=== PATIENT | male | born 1935 | race Caucasian/White ===

== ENCOUNTER 2020-02-29 11:46 | Day surgery (SDC) | payer MEDICARE, OTHER ==
[~2020-02-29] VITALS: Ht 175.3 cm; Wt 83.5 kg
[~2020-02-29 11:46] MED LIST: ASPI325; B-121000 MC2 PO; CLOB.05TC TOP; Cialis20 MG PO; EUTHYROX175 MCG PO; LEVSOD100; LEVSOD150 PO; LISI5 PO; MULVITA; OMEP20ER PO; Omeprazole20 M1; PROP120ER; PROPRANOLOL HC120 MG PO; SYNTHROID; VITAMIN D31000 UNIT PO; XYZAL5 MG PO; [UNRECOGNIZED DRUG - OTHER]
== END 2020-02-29 13:55 | disposition home or self-care (01) ==
LOC: ORSCSDS 11:46
PROVIDERS: Surgery
PROC: 0DJD8ZZ Inspection of Lower Intestinal Tract, Via Natural or Artificial Opening Endoscopic (ICD-10-PCS; principal; 2020-02-29 13:00)
DX: Z12.11 Encounter for screening for malignant neoplasm of colon (principal); Z86.010 Personal history of colon polyps; K57.30 Diverticulosis of large intestine without perforation or abscess without bleeding; G47.33 Obstructive sleep apnea (adult) (pediatric); E03.9 Hypothyroidism, unspecified; N18.9 Chronic kidney disease, unspecified; Z79.899 Other long term (current) drug therapy
CPT/HCPCS: J2704; J7120

== ENCOUNTER 2020-05-05 20:13 | Inpatient (IN) | payer OTHER, MEDICARE ==
[~2020-05-05] VITALS: Ht 175.3 cm; Wt 79.8 kg
[2020-05-05 20:57] LABS: BASOPHILS ABSOLUTE AUTO 0.03 K/mm3 (0.00-0.23); BASOPHILS PERCENT AUTO 0 % (0-2); EOSINOPHILS PERCENT AUTO 0 % (0-6); Hematocrit 54.2 % (37.0-53.0); Hemoglobin 17.8 g/dL (13.5-17.5); IMMATURE GRAN ABSOLUTE AUTO 0.02 K/mm3 (0.00-0.10); IMMATURE GRAN PERCENT AUTO 0 % (0-1); LYMPHOCYTES ABSOLUTE AUTO 1.43 K/mm3 (0.84-5.20); LYMPHOCYTES PERCENT AUTO 21 % (21-46); MONOCYTES PERCENT AUTO 13 % (4-13); Mean Corpuscular HGB Conc 32.8 g/dL (31.5-36.5); Mean Corpuscular Volume 94 fL (80-100); Mean Platelet Volume 11.3 fL (9.1-12.4); NEUTROPHILS ABSOLUTE AUTO 4.41 K/mm3 (1.96-9.15); NEUTROPHILS PERCENT AUTO 65 % (41-73); Platelet Count 111 K/mm3 (150-400); RDW Standard Deviation 45.5 fL (35.1-46.3); Red Blood Cell Count 5.75 M/mm3 (4.30-5.90); White Blood Cell Count 6.79 K/mm3 (4.00-11.30)
[2020-05-05 21:17] LABS: Albumin, Blood 3.9 g/dL (3.4-5.0); Albumin/Globulin Ratio 0.9 (0.8-1.8); Bun/Creatinine Ratio 22.5 (12.0-20.0); Calcium, Blood 8.8 mg/dL (8.5-10.1); Creatinine, Blood 1.42 mg/dL (0.60-1.20); Globulin, Blood 4.3 g/dL (2.2-4.0); Magnesium, Blood 2.1 mg/dL (1.6-2.4); Potassium, Blood 4.4 mmol/L (3.5-5.5); Total Protein, Blood 8.2 g/dL (6.4-8.2); Troponin I 0.07 ng/mL (0.000-0.040)
[2020-05-06 01:09] LABS: Adenovirus Not Detected (NOT DETECT); Coronavirus 229E Not Detected (NOT DETECT); Coronavirus HKU1 Not Detected (NOT DETECT); Coronavirus NL63 Not Detected (NOT DETECT); Coronavirus OC43 Not Detected (NOT DETECT)
[2020-05-06 01:14] LABS: Bordetella pertussis Not Detected (NOT DETECT); Chlamydophila pneumoniae Not Detected (NOT DETECT); Human Metapneumovirus Not Detected (NOT DETECT); Human Rhinovirus/Enterovirus Not Detected (NOT DETECT); Influenza A/2009-H1 Not Detected (NOT DETECT); Influenza A/H1 Not Detected (NOT DETECT); Influenza A/H3 Not Detected (NOT DETECT); Influenza B Not Detected (NOT DETECT); Mycoplasma pneumoniae Not Detected (NOT DETECT); Parainfluenza Virus 1 Not Detected (NOT DETECT); Parainfluenza Virus 2 Not Detected (NOT DETECT); Parainfluenza Virus 3 Not Detected (NOT DETECT); Parainfluenza Virus 4 Not Detected (NOT DETECT); Respiratory Syncytial Virus Not Detected (NOT DETECT); SARS-Cov-2 (COVID-19), BioFire Detected (NOT DETECT)
[2020-05-06 05:48] LABS: BASOPHILS ABSOLUTE AUTO 0.01 K/mm3 (0.00-0.23); BASOPHILS PERCENT AUTO 0 % (0-2); EOSINOPHILS ABSOLUTE AUTO 0.01 K/mm3 (0.00-0.68); EOSINOPHILS PERCENT AUTO 0 % (0-6); Hematocrit 48.5 % (37.0-53.0); Hemoglobin 15.9 g/dL (13.5-17.5); IMMATURE GRAN ABSOLUTE AUTO 0.02 K/mm3 (0.00-0.10); IMMATURE GRAN PERCENT AUTO 0 % (0-1); LYMPHOCYTES PERCENT AUTO 26 % (21-46); MONOCYTES ABSOLUTE AUTO 0.77 K/mm3 (0.16-1.47); MONOCYTES PERCENT AUTO 17 % (4-13); Mean Corpuscular HGB 30.9 pg (26.0-34.0); Mean Corpuscular HGB Conc 32.8 g/dL (31.5-36.5); Mean Corpuscular Volume 94 fL (80-100); NEUTROPHILS ABSOLUTE AUTO 2.53 K/mm3 (1.96-9.15); NEUTROPHILS PERCENT AUTO 56 % (41-73); Platelet Count 90 K/mm3 (150-400); RDW Coefficient Variation 13.1 % (11.7-14.2); RDW Standard Deviation 45.8 fL (35.1-46.3); Red Blood Cell Count 5.14 M/mm3 (4.30-5.90); White Blood Cell Count 4.54 K/mm3 (4.00-11.30)
--- NOTE | 2020-05-06 05:52 | NUR ---
CORRECTIONS CORPORAL SUMMARY Patient arrived from ER around 2400. Alert and oriented X4, Chilled, but without fever, VSS. No complaints of pain. More concerned about his Mary Kate who was later assigned room across aguilar from him. 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 . Patient is a good historian. Lung sounds are coarse in upper airways and clear with strong cough. Explained need for sputum sample. 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 CIWA score 0 at this time.
[2020-05-06 06:20] LABS: Alanine Aminotransfer (ALT/SGP 42 U/L (12-78); Albumin, Blood 3.1 g/dL (3.4-5.0); Albumin/Globulin Ratio 0.8 (0.8-1.8); Alk Phos 61 U/L (50-136); Anion Gap 9 mmol/L (6-16); Aspartate Aminotrans (AST/SGOT 62 U/L (12-37); Bilirubin, Total 0.8 mg/dL (0.1-1.0); Blood Urea Nitrogen 32 mg/dL (8-24); Bun/Creatinine Ratio 27.6 (12.0-20.0); CO2, Blood 24 mmol/L (21-32); CPK Creatine Kinase 153 U/L (39-308); Calcium, Blood 8.4 mg/dL (8.5-10.1); Chloride, Blood 103 mmol/L (98-108); Creatinine, Blood 1.16 mg/dL (0.60-1.20); Globulin, Blood 3.8 g/dL (2.2-4.0); Glomerular Filtration Rate >60 (60-); Glucose, Blood 92 mg/dL (70-99); Potassium, Blood 4.3 mmol/L (3.5-5.5); Sodium, Blood 136 mmol/L (136-145); Total Protein, Blood 6.9 g/dL (6.4-8.2); Troponin I 0.109 ng/mL (0.000-0.040)
--- NOTE | 2020-05-06 09:11 | NUR ---
Echocardiogram using 0.50ml of Definity contrast performed.
[2020-05-06 14:05] LABS: Troponin I 0.068 ng/mL (0.000-0.040)
--- NOTE | 2020-05-06 18:27 | NUR ---
very nice a+o, cooprative with care, medicated as prescribed, rm air after being titrated off of o2 and staying above 90, walking self to bathroom, calllight in reach, saline locked, standing next to bed talking to daughter, will continue to monitor and treat until share bsr with staff and pt
--- NOTE | 2020-05-07 03:39 | NUR ---
84 year old MAle with covid 19 positive status continues in special resp droplet isolation. Alert & acitve PT 95% sat on 2 .5 l oxygen. He CO SOB early in shift with activity but sat was 100% at that time. He says he has had some memory loss with covid infection, support offered. 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 He is active in room & tolerating diet. Planning for DC home when ready. On tele monitor NSR rate in 60s. PT is a [place]. Has supportive Family DTR wants involved in discharge plan.
[2020-05-07 06:36] LABS: BASOPHILS PERCENT AUTO 0 % (0-2); EOSINOPHILS PERCENT AUTO 0 % (0-6); Hemoglobin 15.6 g/dL (13.5-17.5); IMMATURE GRAN ABSOLUTE AUTO 0.03 K/mm3 (0.00-0.10); IMMATURE GRAN PERCENT AUTO 1 % (0-1); LYMPHOCYTES ABSOLUTE AUTO 0.92 K/mm3 (0.84-5.20); LYMPHOCYTES PERCENT AUTO 19 % (21-46); MONOCYTES ABSOLUTE AUTO 0.96 K/mm3 (0.16-1.47); MONOCYTES PERCENT AUTO 20 % (4-13); Mean Corpuscular HGB 31.1 pg (26.0-34.0); Mean Corpuscular HGB Conc 33.2 g/dL (31.5-36.5); Mean Corpuscular Volume 94 fL (80-100); Mean Platelet Volume 11.1 fL (9.1-12.4); NEUTROPHILS ABSOLUTE AUTO 2.95 K/mm3 (1.96-9.15); NEUTROPHILS PERCENT AUTO 61 % (41-73); Platelet Count 116 K/mm3 (150-400); RDW Standard Deviation 44.8 fL (35.1-46.3); Red Blood Cell Count 5.02 M/mm3 (4.30-5.90); White Blood Cell Count 4.86 K/mm3 (4.00-11.30)
[2020-05-07 06:58] LABS: Anion Gap 7 mmol/L (6-16); Blood Urea Nitrogen 44 mg/dL (8-24); Bun/Creatinine Ratio 37.6 (12.0-20.0); CO2, Blood 25 mmol/L (21-32); Calcium, Blood 8.9 mg/dL (8.5-10.1); Chloride, Blood 104 mmol/L (98-108); Creatinine, Blood 1.17 mg/dL (0.60-1.20); Glomerular Filtration Rate >60 (60-); Glucose, Blood 122 mg/dL (70-99); Potassium, Blood 4.8 mmol/L (3.5-5.5); Sodium, Blood 136 mmol/L (136-145)
--- NOTE | 2020-05-07 16:17 | NUR ---
PATIENT HAS BEEN PLEASANT AND COOPERATIVE; FUN SENSE OF HUMOR. VITALS HAVE BEEN STABLE, WITH THE EXCEPTION OF A RR OF 24 THIS MORNING; THAT HAS SINCE COME DOWN TO WNL. PATIENT CONTINUES ON IV ANTIFUNGALS FOR THE COVID VIRUS WITHOUT S/SX OF ADVERSE REACTIONS NOTED OR REPORTED. PATIENT HAS BEEN UP INDEPENDENTLY IN HIS ROOM AND EVEN UP VISITING ACROSS THE LANDERS IN HER ROOM. PATIENT IS CURRENTLY AT BEDSIDE OF . WILL CONTINUE TO MONITOR AND PROVIDE CARE NEEDED.
--- NOTE | 2020-05-08 06:41 | NUR ---
PT was weaned to room air & tolerated well. VSS denies acute distress, CIWA neg & PT denies need for intervention. Continues on inhanced isolation for covid 19 status.
--- NOTE | 2020-05-08 16:02 | NUR ---
PATIENT HAS BEEN PLEASANT AND COOPERATIVE WITH STAFF AND PROVIDED CARE. VITALS HAVE BEEN STABLE, HOWEVER A BIT BRADYCARDIC AT TIMES. INDEPENDENT IN ROOM. CONTINUES ON A DAILY IV ANTI-VIRAL FOR COVID. CALLS STAFF APPROPRIATELY FOR ASSIST NEEDED. PATIENT IN ROOM AT THIS TIME RELAXING. WILL CONTINUE TO MONITOR AND PROVIDE CARE NEEDED. PATIENT HAS DENIES HAVING AND ETOH WITHDRAWL SYMPTOMS.
--- NOTE | 2020-05-09 03:45 | NUR ---
84 year old PT continues in special resp isolation for positive covid 19 status. Alert & active up in room VSS except oxygen sat drops to 84 with activity on room air he returns quickly to 93% on room air. [place], PT continues on daily IV tx for covid 19 viral infection. Pleasant & tolerating diet & activity. Had been constipated but now bowels moving appetite improving.
--- NOTE | 2020-05-09 18:07 | NUR ---
Asited pt's dtr in completion of new Polst for pt. Pt would like DNR, limited interventions. Physician signed and several copies made for family. 2 copies placed in chart. Dtr took original.
--- NOTE | 2020-05-09 18:12 | NUR ---
SHIFT SUMMARY PT IS AOX4. PT IS COOPERATIVE WITH CARE. NEW ORDER FOR FLUTTER VALVE TREATMENT PER PT REQUEST. PT HAD LONG DISCUSSION WITH DAUGHTER ABOUT POLST ORDER AND PT IS NOW A DNR WITH LIMITED CODE. PT DENIES PAIN, N/V, SOB. PT HAS OCCASIONAL NONPRODUCTIVE COUGH. PT IS INDEPENDEND IN ROOM AND TOOK A SHOWER TODAY AND HAD LINENS CHANGED. PLAN IS FOR PT TO STAY OVER THE WEEKEND AND POTENTIALLY DC NEXT WEEK. IV IS SALINE LOCKED. PT IS IN BED, CALL LIGHT IN REACH, BED IN LOW POSITION.
--- NOTE | 2020-05-10 06:22 | NUR ---
SHIFT SUMMARY PT IS AN 84 Y/O MALE, ADMITTED FOR ACUTE RESPIRATORY FAILURE AND COVID19 POSITIVE. HE IS A&O X 4, INDEPENDENT IN THE ROOM. NO COMPLAINTS OF PAIN, NAUSEA OR SOB DURING THE NIGHT. VITAL SIGNS STABLE. PT SLEPT WELL THROUGH THE NIGHT. NO ACUTE CHANGES IN PT CONDITION NOTED. WILL CONTINUE TO MONITOR AND TREAT PER EMAR UNTIL HAND OFF TO DAY SHIFT RN.
--- NOTE | 2020-05-10 19:20 | NUR ---
a+o, went to visit , asked for restless leg medication, but nothing seen yet from dr, will ask again, call light in reach, saline locked, independent in
[2020-05-11 05:28] LABS: Hematocrit 44.2 % (37.0-53.0); Hemoglobin 14.8 g/dL (13.5-17.5); Mean Corpuscular HGB 31.1 pg (26.0-34.0); Mean Corpuscular HGB Conc 33.5 g/dL (31.5-36.5); Mean Corpuscular Volume 93 fL (80-100); Mean Platelet Volume 11.4 fL (9.1-12.4); Platelet Count 178 K/mm3 (150-400); RDW Coefficient Variation 12.7 % (11.7-14.2); RDW Standard Deviation 43.7 fL (35.1-46.3); Red Blood Cell Count 4.76 M/mm3 (4.30-5.90); White Blood Cell Count 11.42 K/mm3 (4.00-11.30)
--- NOTE | 2020-05-11 05:58 | NUR ---
SHIFT SUMMARY PATIENT ALERT AND ORIENTED. PATIENT STATED THAT HE WAS UNABLE TO GET MUCH SLEEP DUE TO HIS RESTLESS LEGS AND IS REQUESTING TO HAVE MEDICATION ORDERED TO HELP WITH THAT TONIGHT. PATIENT WORE HOME CPAP OVERNIGHT. HAD MINIMAL NEEDS. IV PATENT AND FLUSHED. BED IN LOWEST POSITION WITH WHEELS LOCKED. CALL LIGHT WITHIN REACH. REPORT GIVEN TO ONCOMING RN.
[2020-05-11 06:15] LABS: Albumin, Blood 2.8 g/dL (3.4-5.0); Anion Gap 6 mmol/L (6-16); Blood Urea Nitrogen 33 mg/dL (8-24); Bun/Creatinine Ratio 31.7 (12.0-20.0); CO2, Blood 26 mmol/L (21-32); Calcium, Blood 8.7 mg/dL (8.5-10.1); Chloride, Blood 102 mmol/L (98-108); Creatinine, Blood 1.04 mg/dL (0.60-1.20); Glomerular Filtration Rate >60 (60-); Glucose, Blood 119 mg/dL (70-99); Phosphorus, Blood 3.1 mg/dL (2.5-4.9); Potassium, Blood 4.5 mmol/L (3.5-5.5); Sodium, Blood 134 mmol/L (136-145)
--- NOTE | 2020-05-11 10:23 | NUR ---
a+o, dealing with emeotions e/ illness, call light in reach, no bm today, denied urge to go but visited bathroom to please staff, down to visit covid + with family memeber, medicated as prescribed, will continue to monitor and treat
--- NOTE | 2020-05-11 18:13 | NUR ---
a+o, wanting to return to own home, up walking in rm, pt felt he did not require them, took medication as prescribed, saline locked, call light in reach, rm air, will continue to monitor and treat until share bsr with noc nurse and pt, remains very concerned r/
--- NOTE | 2020-05-12 06:38 | NUR ---
SHIFT SUMMARY PATIENT ALERT AND ORIENTED. REQUESTED THAT HE HAVE MEDICATION ORDERED FOR HIS RESTLESS LEG SYNDROME. THIS RN CALLED THE ASSISTANT TODDLER TEACHER PHYSICIAN, DR GLOVER, AND RECEIVED AN ORDER FOR 0.5 MG PO REQUIP AT HS PRN. PATIENT REPORTED THAT THE MEDICATION HELPED HIS LEGS FEEL BETTER. IV PATENT AND FLUSHED. BED IN LOWEST POSITION WITH WHEELS LOCKED. CALL LIGHT WITHIN REACH. REPORT GIVEN TO ONCOMING RN.
--- NOTE | 2020-05-12 11:48 | NUR ---
report received from [facility] nurse, a+o, just tired, family requested meds to help him rest, posted sign on door, o2 has been above 90 for shift, call light in reach, able to walk to bathroom, saline locked, bed in low position, rm air, will continue to monitor and treat
--- NOTE | 2020-05-12 16:02 | NUR ---
pt tripped on his way to the bathroom, dr, family and cn informed, pt back in bed with alarm on, will continue to monitor and treat
--- NOTE | 2020-05-12 18:37 | NUR ---
pt fell during shift, reported to dr, family and cn, family stated they thought he may have gotten a bruise on his abdmn but that had been there from blood thinner, already was black/blue not red fresh looking will continue to monitor and treat until share bsr with noc nurse, pt is resting, breathing easily, 02 > 90 when checked, saline locked, rm air, held vit c due to pt being so deeply asleep he might have been a choke issue/risk, pt responds but does not wake up to verbal stimuli, frequent neuro checks irritated pt but nothing was indicated
--- NOTE | 2020-05-13 03:19 | NUR ---
PHYSICIAN COMMUNICATION CONTACTED SUBSCRIPTION CREW LEADER PHYSICIAN, DR WOLF, TO NOTIFY HER THAT THE PATIENT FELL ON DAY SHIFT 05/12 AND SINCE HAS BEEN EXPERIENCING INCREASING PAIN IN HIS RIGHT LOWER RIB AREA AND IS CURRENTLY AT A 7/10 PAIN. STATED THAT HE DIDN'T HAVE ANY PAIN MEDICATION ORDERED CURRENTLY. DR WOLF SAID SHE WOULD ENTER AN ORDER OF TYLENOL TO BEGIN WITH.
--- NOTE | 2020-05-13 09:00 | NUR ---
pt pleasant a/o x3. talkative, is tearful when discussed , whom just passed lst markell. h/r reg, no murmer noted. no tele. lungs crackles rt mid and low left lower. on r/a at this time. does sleep with cpap. covid positive. resp easy, unlabored. states no distress at this time. bt x4 last bm 2 days per pt. voids q 2-3 hrs per pt. 1 sba to bathroom. bed in low position, call lite in reach, calls approp
--- NOTE | 2020-05-13 17:49 | NUR ---
pt pleasant today. daughter in to room. did express desire to not discuss him at this time. is tearful. no new concerns at this time. [facility], in room most of day. bed in low positioin, call lite in reach, calls approp
--- NOTE | 2020-05-13 18:11 | NUR ---
Initial spiritual care note: Mr. Seymour was clearly grieving the loss of his just yesterday. He was tearful and talkative. He allowed me to pray for him. Dtr present and appreciative of emotional support. Gentle memorial counselor provided to both. We had an easy rapport. He will benefit from continued emotional support. Encouraged self-care to dtr. Pt going home alone is a concern for family. I will remain available.
--- NOTE | 2020-05-14 05:08 | NUR ---
SHIFT SUMMARY: AFEB. 02 91-94% ON RA. CRACKLES AUSCULTATED IN BASES BILATERALLY AND R MID LOBE. OCC NON-PRODUCTIVE COUGH. PT REPORTS EXERTIONAL DYSPNEA IMPROVING- APPEARS MILDLY PRESENT WHEN AMBULATING TO AND FROM THE BATHROOM. CALLING APPROPRIATELY FOR ASSISTANCE TONIGHT. GAIT APPEARS STEADY. PT STATES HE FEELS HIS HEALTH IS IMPROVING. MED X 1 FOR RLS. NO ACUTE CONCERNS AT THIS TIME.
[2020-05-14] MEDS ORDERED: ACET325 PO (13:01)
[2020-05-14] MEDS ORDERED: ALBU90OI INH (13:03)
[2020-05-14] MEDS ORDERED: ASCO500 PO (13:04)
[2020-05-14] MEDS ORDERED: FOLI1 PO (13:05)
[2020-05-14] MEDS ORDERED: BENZ100A PO (13:05)
[2020-05-14] MEDS ORDERED: LIDOCAINE1 EAC1 TOP (13:06)
[2020-05-14] MEDS ORDERED: Ropinirole HCl0.5 MG PO (13:08)
[2020-05-14] MEDS ORDERED: B-1100 M1 PO (13:09)
--- NOTE | 2020-05-14 17:09 | NUR ---
PT WAS DISCHARGED @ APPROX 1700 BY WHEELCHAIR WITH [facility]SP[facility]. VERONICA CAME AND PROVIDED PT WITH PORTABLE O2 TANK TO GET PT HOME, NC WAS PLACED ON PT WITH 1 L/MIN O2 GOING. VERONICA ALSO MEETING PT AT HOME TONIGHT WITH EXTRA TANKS. PT WAS INFORMED ABOUT DISCHARGE EDUCATION AND PROVIDED HANDOUTS. HE WAS ALSO INFORMED REGARDING FOLLOW UP APPOINTMENT WITH PCP. DAUGHTER WAS ALSO CALLED AND INFORMED. PRESCIPTIONS WILL BE DELIVERED TO PT JENNIFER TOMORROW BY PHARMACY. PT IS TO CONTACT [facility] TO HAVE THEM CONTACT [employer] REGARDING SHIPPING OF FUTURE MEDICATIONS. HOME HEALTH IS TO CONTACT PT. CPAP AND INCENTIVE SPIROMETER WAS SENT HOME WITH PT. IV REMOVED AND SITE LOOKED WITHIN NORMAL LIMITS.
--- NOTE | 2020-05-14 17:15 | NUR ---
Supportive visit and prayer provided to Lev and his dtr, Veronica. Lev was appreciaitve and open to gentle bereavment career and guidance counselor. Family was tearful but appropriate. He is being d/c this afternoon.
== END 2020-05-14 17:01 | disposition home health service (06) | DRG 871 ==
LOC: ER 20:13 → MEDS 22:05
PROVIDERS: Emergency Medicine; Internal Medicine; ADMIT Internal Medicine
PROC: XW033E5 Introduction of Remdesivir Anti-infective into Peripheral Vein, Percutaneous Approach, New Technology Group 5 (ICD-10-PCS; principal; 2020-05-05)
PROC: 3E0333Z Introduction of Anti-inflammatory into Peripheral Vein, Percutaneous Approach (ICD-10-PCS; 2020-05-05)
PROC: 5A09457 Assistance with Respiratory Ventilation, 24-96 Consecutive Hours, Continuous Positive Airway Pressure (ICD-10-PCS; 2020-05-10)
DX: A41.89 Other specified sepsis (principal); U07.1 COVID-19; J12.89 Other viral pneumonia; J96.01 Acute respiratory failure with hypoxia; I24.8 Other forms of acute ischemic heart disease; J44.1 Chronic obstructive pulmonary disease with (acute) exacerbation; J44.0 Chronic obstructive pulmonary disease with (acute) lower respiratory infection; N17.9 Acute kidney failure, unspecified; R65.20 Severe sepsis without septic shock; G47.33 Obstructive sleep apnea (adult) (pediatric); E03.9 Hypothyroidism, unspecified; K21.9 Gastro-esophageal reflux disease without esophagitis; G25.81 Restless legs syndrome; I10 Essential (primary) hypertension; W19.XXXA Unspecified fall, initial encounter; Z87.891 Personal history of nicotine dependence; Z63.4 Disappearance and death of family member; Z66 Do not resuscitate; Z99.81 Dependence on supplemental oxygen; F10.10 Alcohol abuse, uncomplicated; R07.81 Pleurodynia; Z51.5 Encounter for palliative care
CPT/HCPCS: 0202U; 36415; 71045; 71111; 80048; 80053; 80069; 82550; 83735; 83880; 84484; 85025; 85027; 93005; 93010; 94668; 94761; 97161; 97165; 97530; 99285-25; A9270; C8929; J1650; J2060; J7050; J7120; Q9957

== ENCOUNTER 2021-01-27 22:39 | Emergency (ER) | payer MEDICARE, OTHER ==
[~2021-01-27 22:39] MED LIST changes: +ACET325 PO; +ALBU90OI INH; +ASCO500 PO; +B-1100 M1 PO; +BENZ100A PO; +FOLI1 PO; +LIDOCAINE1 EAC1 TOP; +Ropinirole HCl0.5 MG PO
== END 2021-01-27 23:26 | disposition left against medical advice (07) ==
LOC: ER 22:39
DX: Z53.21 Procedure and treatment not carried out due to patient leaving prior to being seen by health care provider (principal)

== ENCOUNTER → 2022-10-05 | Outpatient (CLI) | payer MEDICARE, OTHER | END | disposition home or self-care (01) | LOC: LAB SHORT 15:21 → PLD 15:21 | DX: D48.5 Neoplasm of uncertain behavior of skin (principal) | CPT/HCPCS: 88305 ==